=== PATIENT | female | born 1965 | race Caucasian/White ===

== ENCOUNTER 2018-12-06 09:59 | Emergency (ER) | payer OTHER ==
--- NOTE | 2018-12-06 10:46 | ULT ---
EXAM: Left lower extremity venous Doppler US HISTORY: left lower extremity pain FINDINGS: Grayscale, color-flow, Doppler evaluation, spectral analysis of the left lower extremity venous struc tures is performed with 2-D imaging. The left common femoral, superficial femoral, popliteal, posterior tibial, proximal greater saphenous and profunda femoral veins are imaged. There is normal luminal compressibility, flow, and augmentation the visualized deep venous structures of the left lower extremity. IMPRESSION: No evidence of a deep vein thrombosis in the left lower extremity.
== END 2018-12-06 11:00 | disposition home or self-care (01) ==
LOC: ERS 09:59
DX: M79.662 Pain in left lower leg (principal)

== ENCOUNTER 2018-12-27 10:19 | Outpatient (CLI) | payer OTHER ==
--- NOTE | 2018-12-27 11:57 | MRI ---
CT of lumbar spine without and with gadolinium contrast HISTORY: Low back pain with left leg radiculopathy. Prior surgeries. FINDINGS: The conus medullaris has normal appearance. Vertebral body heights and alignment are mainta ined. Mild discogenic endplate changes within the bone marrow. T12-L1, L1-2, L2-3: Mild osteophytosis. Central canal and neural foramina are patent. L3-4: Mild disc bulge. Circumferential degenerative changes. Mild stenosis of the central canal. Neur al foramina remain patent. L4-5: Disc space narrowing. Large herniation of the intervertebral disc extends posteriorly and infer iorly to the left, severely compressing the left L5 nerve root origin. Posterior operative decompression. No abnormal areas of contrast enhancement. Thecal sac is patent at this level. Disc bu lge and degenerative changes result in moderate stenosis of the right neural foramen. L5-S1: Mild osteophytosis. Thecal sac and neural foramina are patent. 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 Otherwise mild degenerative changes of lumbar spine as detailed above.
== END 2018-12-27 10:20 | disposition home or self-care (01) ==
LOC: BICMRI 10:19
PROVIDERS: ATTEND Internal Medicine
DX: M51.16 Intervertebral disc disorders with radiculopathy, lumbar region (principal); M47.26 Other spondylosis with radiculopathy, lumbar region
CPT/HCPCS: 72158